=== PATIENT | female | born 1970 | race Hispanic/Latino ===

== ENCOUNTER 2020-06-11 11:34 | Outpatient (CLI) | payer OTHER | END 2020-06-11 11:35 | disposition home or self-care (01) | LOC: BICRAD 11:34 | PROVIDERS: ATTEND Podiatrist | DX: S93.401A Sprain of unspecified ligament of right ankle, initial encounter (principal); S82.61XA Displaced fracture of lateral malleolus of right fibula, initial encounter for closed fracture ==

== ENCOUNTER 2020-07-16 12:43 | Outpatient (CLI) | payer OTHER | END 2020-07-16 12:44 | disposition home or self-care (01) | LOC: BICRAD 12:43 | PROVIDERS: ATTEND Podiatrist | DX: M25.571 Pain in right ankle and joints of right foot (principal); S82.831A Other fracture of upper and lower end of right fibula, initial encounter for closed fracture ==